=== PATIENT | female | born 1995 | race Caucasian/White ===

== ENCOUNTER 2022-10-08 19:48 | Outpatient (REF) | payer OTHER, SELFPAY | END 2022-10-08 19:49 | LOC: LAB 19:48 | PROVIDERS: PCP Obstetrics & Gynecology; Visit Provider Obstetrics & Gynecology | DX: Z34.93 Encounter for supervision of normal pregnancy, unspecified, third trimester (principal) | CPT/HCPCS: 87081 ==

== ENCOUNTER 2022-10-09 14:59 | Outpatient (OUT) | payer OTHER, SELFPAY ==
[2022-10-09 15:18] LABS: Hematocrit 34.4 % (36.0-48.0); Hemoglobin 10.7 g/dL (12.0-16.0); Mean Corpuscular HGB Conc 31.1 g/dL (29.9-35.2); Mean Corpuscular Volume 83.5 fL (81.0-99.0); Mean Platelet Volume 9.4 fL (9.5-13.5); Platelet Count 322 10^3/uL (150-450); Red Blood Count 4.12 10^6/uL (4.20-5.40); White Blood Count 15.5 10^3/uL (4.0-11.0)
[2022-10-09 15:24] LABS: Aspartate Amino Transferase 24 U/L (15-37); Estimated GFR (African America >60 (>=60); Estimated GFR (Non-African Ame >60 (>=60)
[2022-10-09 15:25] LABS: Alanine Aminotransferase 19 U/L (14-59)
[2022-10-09 15:41] LABS: Band Neutrophils Absolute 0.5 10^3/uL (0.0-0.3); Lymphocytes Absolute Manual 2.01 10^3/uL (1.20-3.80); Segmented Neut Absolute Manual 11.16 10^3/uL (1.4-6.5)
[2022-10-09 15:42] LABS: Eosinophils Absolute Manual 0.46 10^3/uL (0.00-0.70); Metamyelocytes Absolute Manual 0.31; Monocytes Absolute Manual 1.08 10^3/uL (0.30-0.80)
[2022-10-09 15:43] LABS: Anisocytosis 1+; Microcytosis 1+
[2022-10-09 16:24] LABS: Total Volume 24 Hour Urine 2500 mL/24hr
== END 2022-10-09 15:00 ==
LOC: LAB 14:59
PROVIDERS: PCP Obstetrics & Gynecology; Visit Provider Obstetrics & Gynecology
DX: O16.9 Unspecified maternal hypertension, unspecified trimester (principal)
CPT/HCPCS: 36415; 82565; 84156; 84450; 84460; 84520; 85007; 85025

== ENCOUNTER 2022-10-22 09:14 | Inpatient (IN) | payer OTHER, SELFPAY ==
[2022-10-22] VITALS (36 sets, daily range): BP systolic 95–129; BP diastolic 51–78; PULSE 81–105; RESP 16–18; TEMP 36.6–37.1
[2022-10-22 11:17] LABS: Hematocrit 31.8 % (36.0-48.0); Hemoglobin 9.9 g/dL (12.0-16.0); Mean Corpuscular HGB Conc 31.1 g/dL (29.9-35.2); Mean Corpuscular Hemoglobin 25.1 pg (26.7-34.0); Mean Corpuscular Volume 80.5 fL (81.0-99.0); Mean Platelet Volume 9.3 fL (9.5-13.5); Platelet Count 382 10^3/uL (150-450); Red Blood Count 3.95 10^6/uL (4.20-5.40); Red Cell Distribution Width 15.9 % (11.0-15.0)
[2022-10-22 11:30] LABS: Amphetamine Screen Urine NEGATIVE (NEGATIVE); Benzodiazepines Screen Urine NEGATIVE (NEGATIVE); Cannabinoid Screen Urine NEGATIVE (NEGATIVE); Cocaine Screen Urine NEGATIVE (NEGATIVE); Methamphetamines Screen Urine NEGATIVE (NEGATIVE); Opiate Screen Urine NEGATIVE (NEGATIVE); Phencyclidine Screen Urine NEGATIVE (NEGATIVE)
[2022-10-22 11:31] LABS: Barbiturates Screen Urine NEGATIVE (NEGATIVE); Buprenorphine Screen Urine NEGATIVE (NEGATIVE); Methadone Screen Urine NEGATIVE (NEGATIVE); Oxycodone Screen Urine NEGATIVE (NEGATIVE); Tricyclic Antidepressant Urine NEGATIVE (NEGATIVE)
[2022-10-22] MEDS: 0.9 % SODIUM CHLORIDE 1,000 ML 1000 ML IV (12:07)
[2022-10-22] MEDS: OXYTOCIN 10 UNIT in 0.9 % SODIUM CHLORIDE 500 ML 6.012 UNIT IV (12:10)
[2022-10-22] MEDS: FENTANYL CITRATE/PF 100 MCG/2 ML VIAL EPIDURAL (14:27)
[2022-10-22] MEDS: ROPIVACAINE HCL/PF 400 MG/200 ML PREMIX 10 MG EPIDURAL (14:28)
[2022-10-22] MEDS: LIDOCAINE HCL 2% PF 100 MG/5 ML VIAL INJ ×2 (19:32→21:20)
[2022-10-22] MEDS: 0.9 % SODIUM CHLORIDE 1,000 ML 125 ML IV (21:40)
--- NOTE | 2022-10-22 21:49 | PM.OBPRCVD ---
Procedure Induction method: per pitocin protocol Delivery augmentation: rupture of membranes and pitocin Delivery monitor: external FHT and external uterine Route of delivery: Estimated blood loss (mL): 200 Anesthesia type: Epidural Disposition: floor Delivery date: 10/22/22 Gender: male presentation: vertex Placental delivery description: Spontaneous and Normal Configuration cord description: 3 Vessels
[2022-10-22] MEDS: IBUPROFEN 600 MG TABLET PO (23:35)
--- NOTE | 2022-10-22 23:54 | PC.NURSE ---
Pt up to bathroom with nurse assist. Her gait is steady. No dizziness noted. Pt voids. Pericare is done. New pad applied. Gown changed. Bed linens changed and pt is back to bed.
--- NOTE | 2022-10-23 01:10 | PM.OBPN ---
OB - PN: Subj Subjective Patient comments: no complaints and pain well controlled Exam Constitutional Vital Signs - 24 hr 10/22/22 10:38 10/22/22 10:53 10/22/22 11:09 Temperature Pulse Rate 95 H 88 93 H Respiratory Rate Blood Pressure 112/55 L 109/56 L 107/64 Blood Pressure [Left Arm] Oxygen Delivery Method 10/22/22 11:23 10/22/22 11:38 10/22/22 11:53 Temperature Pulse Rate 95 H 95 H 89 Respiratory Rate Blood Pressure 108/67 102/61 98/58 L Blood Pressure [Left Arm] Oxygen Delivery Method 10/22/22 12:00 10/22/22 12:15 10/22/22 12:31 Temperature 98.1 F Pulse Rate 86 90 Respiratory Rate Blood Pressure 100/60 97/55 L Blood Pressure [Left Arm] Oxygen Delivery Method 10/22/22 13:01 10/22/22 13:31 10/22/22 14:17 Temperature Pulse Rate 99 H 103 H 105 H Respiratory Rate Blood Pressure 104/62 116/55 L 124/78 H Blood Pressure [Left Arm] Oxygen Delivery Method 10/22/22 14:24 10/22/22 14:25 10/22/22 14:35 Temperature 97.9 F Pulse Rate 87 92 H Respiratory Rate Blood Pressure 116/76 125/64 H Blood Pressure [Left Arm] Oxygen Delivery Method 10/22/22 14:40 10/22/22 14:44 10/22/22 14:49 Temperature Pulse Rate 93 H 90 91 H Respiratory Rate Blood Pressure 120/60 H 126/68 H 115/70 Blood Pressure [Left Arm] Oxygen Delivery Method 10/22/22 14:54 10/22/22 15:32 10/22/22 16:01 Temperature Pulse Rate 91 H 93 H 86 Respiratory Rate Blood Pressure 119/67 95/54 L 99/51 L Blood Pressure [Left Arm] Oxygen Delivery Method 10/22/22 16:30 10/22/22 17:00 10/22/22 17:30 Temperature Pulse Rate 90 81 85 Respiratory Rate Blood Pressure 105/57 L 100/55 L 108/69 Blood Pressure [Left Arm] Oxygen Delivery Method 10/22/22 18:00 10/22/22 18:30 10/22/22 18:59 Temperature Pulse Rate 89 87 93 H Respiratory Rate Blood Pressure 125/78 H 129/68 H 120/64 H Blood Pressure [Left Arm] Oxygen Delivery Method 10/22/22 20:45 10/22/22 21:29 10/22/22 21:44 Temperature Pulse Rate 101 H 105 H 93 H Respiratory Rate Blood Pressure 119/62 127/66 H 108/57 L Blood Pressure [Left Arm] Oxygen Delivery Method 10/22/22 21:59 10/22/22 21:59 10/22/22 22:14 Temperature 98.7 F Pulse Rate 101 H 99 H Respiratory Rate 18 Blood Pressure 115/57 L 111/57 L Blood Pressure [Left Arm] Oxygen Delivery Method 10/22/22 22:29 10/22/22 22:44 10/22/22 22:59 Temperature Pulse Rate 93 H 90 96 H Respiratory Rate Blood Pressure 101/61 108/61 108/61 Blood Pressure [Left Arm] Oxygen Delivery Method 10/22/22 23:22 10/22/22 23:22 Temperature 98.5 F Pulse Rate 95 H 95 H Respiratory Rate 16 Blood Pressure 112/66 Blood Pressure [Left Arm] 112/66 Oxygen Delivery Method Room Air Documenting provider has reviewed patient's vital signs: yes Common normals: no apparent distress Respiratory Common normals: normal respiratory effort and clear to auscultation bilaterally Cardio Common normals: regular rate and regular rhythm GI Common normals: Normal to inspection, nondistended, normoactive bowel sounds present Extremity Common normals: no clubbing, cyanosis or edema and no calf tenderness Results Labs Labs: Short CBC 10/22/22 Range/Units 10:45 WBC 12.0 H (4.0-11.0) 10^3/uL Hgb 9.9 L (12.0-16.0) g/dL Hct 31.8 L (36.0-48.0) % Plt Count 382 (150-450) 10^3/uL OB - PN: A/P Plan - Vaginal Delivery day: 1 Plan: routine care Time Spent with Patient Time: Total time spent is greater than 50% in coordination of care (as documented) at patient's floor/unit and/or counseling patient: Total time spent with greater than 50% in coordination of care (as documented) at patient's floor/unit and/or counseling patient: less than 15 minutes
[2022-10-23 05:22] LABS: Basophils Absolute Auto 0.1 10^3/uL (0.0-0.1); Basophils Percent Auto 0.3 % (0.2-2.0); Hematocrit 33.4 % (36.0-48.0); Hemoglobin 10.6 g/dL (12.0-16.0); Immature Granulocytes Abs Auto 0.28 10^3/uL (0.00-0.03); Immature Granulocytes Pct Auto 1.3 % (0.0-0.5); Lymphocytes Absolute Auto 1.6 10^3/uL (1.2-3.8); Lymphocytes Percent Auto 7.6 % (20.5-60.0); Mean Corpuscular HGB Conc 31.7 g/dL (29.9-35.2); Mean Corpuscular Hemoglobin 25.8 pg (26.7-34.0); Mean Corpuscular Volume 81.3 fL (81.0-99.0); Mean Platelet Volume 9.2 fL (9.5-13.5); Monocytes Absolute Auto 1.7 10^3/uL (0.3-0.8); Monocytes Percent Auto 8.1 % (1.7-12.0); Neutrophils Absolute Auto 17.5 10^3/uL (1.4-6.5); Neutrophils Percent Auto 82.7 % (43.0-75.0); Platelet Count 376 10^3/uL (150-450); Red Blood Count 4.11 10^6/uL (4.20-5.40); Red Cell Distribution Width 16.1 % (11.0-15.0); White Blood Count 21.2 10^3/uL (4.0-11.0)
--- NOTE | 2022-10-23 07:41 | W.PC.ACHO ---
Registration Status: ADM IN Primary Language: Preferred Language: Telugu Active Medications Generic Name Dose Route Start Last Admin Trade Name Freq PRN Reason Stop Dose Admin Acetaminophen 650 mg 10/22/22 21:46 Acetaminophen 325 Mg Tablet PO Q6H PRN Mild Pain Al Hydroxide/Mg Hydroxide 2,400 mg 10/22/22 21:46 Magnesium Hydroxide 2,400 Mg/10 Ml Oral.Susp PO Q6H PRN Dyspepsia Benzocaine/Menthol 1 applic 10/22/22 21:46 10/22/22 23:34 Benzocaine/Menthol 85 Gram Bottle TOPICAL 1 applic DIRECTED PRN Administration Pain Carboprost Tromethamine 250 mcg 10/22/22 10:53 Carboprost Tromethamine 250 Mcg/Ml 1 Ml Vial IM Q15M PRN Bleeding Diphenhydramine HCl 25 mg 10/22/22 13:26 Diphenhydramine Hcl 50 Mg/Ml (1ml) Vial IV Q6H PRN Itching Diphtheria/Pertussis/Tetanus Vacc 0.5 ml 10/23/22 11:00 Adacel Diph,Pertuss(Acell),Tet Vac/Pf 0.5 Ml Adult Syringe IM 10/23/22 11:01 .ONCE ONE Docusate Sodium 100 mg 10/23/22 09:00 Docusate Sodium 100 Mg Capsule PO BID RAYMUNDO Ephedrine Sulfate 5 mg 10/22/22 13:26 Ephedrine Sulfate 50 Mg/Ml Vial IV Q5M PRN Blood Pressure - Low Fentanyl Citrate 100 mcg 10/22/22 13:26 10/22/22 14:27 Fentanyl Citrate/Pf 100 Mcg/2 Ml Vial EPIDURAL 100 mcg Q4H PRN Administration Pain Sodium Chloride 1,000 mls @ 125 mls/hr 10/22/22 11:00 10/22/22 14:27 Sodium Chloride 0.9% 1,000 Ml IV 125 mls/hr .Q8H RAYMUNDO Administration Oxytocin 10 unit/ Sodium 501 mls @ 6.012 mls/hr 10/22/22 11:00 Chloride IV Q24H RAYMUNDO 2 MILLIUNIT/MIN Oxytocin 10 unit/ Sodium 501 mls @ 6.012 mls/hr 10/22/22 11:44 10/22/22 12:10 Chloride IV 10/25/22 23:03 2 milliunit/min ONCE ONE 6.012 mls/hr Administration 2 MILLIUNIT/MIN Ropivacaine/Sodium Chloride 400 mg in 200 mls @ 6 mls/hr 10/22/22 13:30 10/22/22 14:28 Naropin 0.2% 400 Mg/200 Ml Bag EPIDURAL 10 mls/hr Q24H RAYMUNDO 10 mls/hr Administration Oxytocin 20 unit/ Sodium 1,002 mls @ 125 mls/hr 10/23/22 06:45 10/22/22 21:43 Chloride IV 10/23/22 14:44 125 mls/hr Q8H RAYMUNDO 125 mls/hr Administration Protocol Ibuprofen 600 mg 10/22/22 21:46 10/22/22 23:35 Ibuprofen 600 Mg Tablet PO 600 mg Q6H PRN Administration Moderate Pain Lidocaine 5 ml 10/22/22 10:53 Lidocaine Viscous 2% 15 Ml Topical Solution TOPICAL Q5M PRN Pain Lidocaine 1 ml 10/22/22 10:53 Lidocaine Hcl 1% 200 Mg/20 Ml Mdv INJ Q5M PRN Pain Measles/Mumps/Rubella Vaccine Live 0.5 ml 10/23/22 11:00 Measles,Mumps,Rubella Vacc/Pf 0.5 Ml Vial SQ 10/23/22 11:01 .ONCE ONE Methylergonovine Maleate 0.2 mg 10/22/22 10:53 Methylergonovine Maleate 0.2 Mg Tablet PO Q4H PRN Uterine Contractility/Contract Misoprostol 600 mcg 10/22/22 10:53 Misoprostol 100 Mcg Tablet PO ONCE PRN Uterine Bleeding Misoprostol 800 mcg 10/22/22 10:53 Misoprostol 100 Mcg Tablet SL ONCE PRN Uterine Bleeding Nalbuphine HCl 10 mg 10/22/22 10:53 Nalbuphine Hcl 10 Mg/Ml Ampule IV Q3H PRN Pain Ondansetron HCl 4 mg 10/22/22 10:53 Ondansetron Pf 4 Mg/2 Ml Vial IV Q6H PRN Nausea And Vomiting Ondansetron HCl 4 mg 10/22/22 10:53 Ondansetron 4 Mg Rapdis Tablet SL Q6H PRN Nausea And Vomiting Oxytocin 10 unit 10/22/22 10:53 Oxytocin 100 Unit/10 Ml Vial IM ONCE PRN Uterine Bleeding Senna 17.2 mg 10/22/22 20:00 Sennosides 8.6 Mg Tablet PO QHS PRN Constipation Simethicone 80 mg 10/22/22 21:46 Simethicone 80 Mg Tab.Chew PO QID PRN Abdominal Distention Temazepam 15 mg 10/22/22 20:00 Temazepam 15 Mg Capsule PO BEDTIME PRN Sleep Witch Christine/Glycerin 1 each 10/22/22 21:46 Glycerin/Witch Christine 1 Each Jar TOPICAL DIRECTED PRN Pain Diet Category Date Time Status Regular Consistency Diet Diet 10/23/22 Breakfast Active IV Insertion/Site Date of IV Line Insertion [18g 10/22/22 left Hand] IV Insertion Time [18g left 21:10 Hand] Neurology [place] coma scale total score 15 Respiratory Lung sounds [Throughout] clear Oxygen Delivery Method Room Air
--- NOTE | 2022-10-23 08:44 | PC.NURSE ---
0745plan of care reviewed of self and . Pt pleasant, denies pain or needs at this time
--- NOTE | 2022-10-23 09:02 | PC.NURSE ---
0900-IV d/c'd, bandaid to site. Pt requests to shower. denies pain or other needs
--- NOTE | 2022-10-23 09:51 | PC.NURSE ---
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 denies needs
[2022-10-23] MEDS: DOCUSATE SODIUM 100 MG CAPSULE PO ×2 (11:17→23:51)
[2022-10-23 12:03] VITALS: BP 111/55; PULSE 93
[2022-10-23] MEDS: IBUPROFEN 600 MG TABLET PO ×2 (14:38→23:51)
[2022-10-23 17:08] VITALS: BP 95/53; PULSE 83
--- NOTE | 2022-10-23 21:02 | PC.NURSE ---
1909-report to Karen RN,. care relinquished.
--- NOTE | 2022-10-23 21:09 | PC.NURSE ---
visitors in, denies pain or needs
[2022-10-23 23:43] VITALS: BP 104/63; PULSE 74
[2022-10-23 23:45] VITALS: BP 104/63; PULSE 74; RESP 16; TEMP 36.4
--- NOTE | 2022-10-24 07:17 | W.PC.ACHO ---
Registration Status: ADM IN Primary Language: Preferred Language: Greek Active Medications Generic Name Dose Route Start Last Admin Trade Name Freq PRN Reason Stop Dose Admin Acetaminophen 650 mg 10/22/22 21:46 Acetaminophen 325 Mg Tablet PO Q6H PRN Mild Pain Al Hydroxide/Mg Hydroxide 2,400 mg 10/22/22 21:46 Magnesium Hydroxide 2,400 Mg/10 Ml Oral.Susp PO Q6H PRN Dyspepsia Benzocaine/Menthol 1 applic 10/22/22 21:46 10/22/22 23:34 Benzocaine/Menthol 85 Gram Bottle TOPICAL 1 applic DIRECTED PRN Administration Pain Carboprost Tromethamine 250 mcg 10/22/22 10:53 Carboprost Tromethamine 250 Mcg/Ml 1 Ml Vial IM Q15M PRN Bleeding Diphenhydramine HCl 25 mg 10/22/22 13:26 Diphenhydramine Hcl 50 Mg/Ml (1ml) Vial IV Q6H PRN Itching Docusate Sodium 100 mg 10/23/22 09:00 10/23/22 23:51 Docusate Sodium 100 Mg Capsule PO 100 mg BID RYAMUNDO Administration Ephedrine Sulfate 5 mg 10/22/22 13:26 Ephedrine Sulfate 50 Mg/Ml Vial IV Q5M PRN Blood Pressure - Low Fentanyl Citrate 100 mcg 10/22/22 13:26 10/22/22 14:27 Fentanyl Citrate/Pf 100 Mcg/2 Ml Vial EPIDURAL 100 mcg Q4H PRN Administration Pain Sodium Chloride 1,000 mls @ 125 mls/hr 10/22/22 11:00 10/22/22 21:40 Sodium Chloride 0.9% 1,000 Ml IV 125 mls/hr .Q8H RAYMUNDO Administration Oxytocin 10 unit/ Sodium 501 mls @ 6.012 mls/hr 10/22/22 11:00 Chloride IV Q24H RAYMUNDO 2 MILLIUNIT/MIN Oxytocin 10 unit/ Sodium 501 mls @ 6.012 mls/hr 10/22/22 11:44 10/22/22 12:10 Chloride IV 10/25/22 23:03 2 milliunit/min ONCE ONE 6.012 mls/hr Administration 2 MILLIUNIT/MIN Ropivacaine/Sodium Chloride 400 mg in 200 mls @ 6 mls/hr 10/22/22 13:30 10/22/22 14:28 Naropin 0.2% 400 Mg/200 Ml Bag EPIDURAL 10 mls/hr Q24H RAYMUNDO 10 mls/hr Administration Ibuprofen 600 mg 10/22/22 21:46 10/23/22 23:51 Ibuprofen 600 Mg Tablet PO 600 mg Q6H PRN Administration Moderate Pain Lidocaine 5 ml 10/22/22 10:53 Lidocaine Viscous 2% 15 Ml Topical Solution TOPICAL Q5M PRN Pain Lidocaine 1 ml 10/22/22 10:53 Lidocaine Hcl 1% 200 Mg/20 Ml Mdv INJ Q5M PRN Pain Methylergonovine Maleate 0.2 mg 10/22/22 10:53 Methylergonovine Maleate 0.2 Mg Tablet PO Q4H PRN Uterine Contractility/Contract Misoprostol 600 mcg 10/22/22 10:53 Misoprostol 100 Mcg Tablet PO ONCE PRN Uterine Bleeding Misoprostol 800 mcg 10/22/22 10:53 Misoprostol 100 Mcg Tablet SL ONCE PRN Uterine Bleeding Nalbuphine HCl 10 mg 10/22/22 10:53 Nalbuphine Hcl 10 Mg/Ml Ampule IV Q3H PRN Pain Ondansetron HCl 4 mg 10/22/22 10:53 Ondansetron Pf 4 Mg/2 Ml Vial IV Q6H PRN Nausea And Vomiting Ondansetron HCl 4 mg 10/22/22 10:53 Ondansetron 4 Mg Rapdis Tablet SL Q6H PRN Nausea And Vomiting Oxytocin 10 unit 10/22/22 10:53 Oxytocin 100 Unit/10 Ml Vial IM ONCE PRN Uterine Bleeding Senna 17.2 mg 10/22/22 20:00 Sennosides 8.6 Mg Tablet PO QHS PRN Constipation Simethicone 80 mg 10/22/22 21:46 Simethicone 80 Mg Tab.Chew PO QID PRN Abdominal Distention Temazepam 15 mg 10/22/22 20:00 Temazepam 15 Mg Capsule PO BEDTIME PRN Sleep Witch Christine/Glycerin 1 each 10/22/22 21:46 Glycerin/Witch Christine 1 Each Jar TOPICAL DIRECTED PRN Pain Diet Category Date Time Status Regular Consistency Diet Diet 10/23/22 Breakfast Active Neurology [place] coma scale total score 15 Respiratory Lung sounds [Throughout] clear Oxygen Delivery Method Room Air Oxygen Delivery Method Room Air Cardiology Heart Sounds Regular Bowels Bowel Pattern No Bowel Movement Renal Bladder Pattern Continent
[2022-10-24 08:09] VITALS: BP 110/64; PULSE 78
[2022-10-24 08:10] VITALS: PULSE 78; RESP 16; TEMP 37
[2022-10-24] MEDS: DOCUSATE SODIUM 100 MG CAPSULE PO (08:19)
--- NOTE | 2022-10-24 09:02 | PM.OBPN ---
OB - PN: Subj Subjective Patient comments: no complaints and pain well controlled [place] status: doing well Exam Constitutional Vital Signs - 24 hr 10/23/22 12:03 10/23/22 17:08 10/23/22 23:43 Temperature Pulse Rate 93 H 83 74 Pulse Rate [Monitor] Respiratory Rate Blood Pressure 111/55 L 95/53 L 104/63 Blood Pressure [Left Arm] Oxygen Delivery Method 10/24/22 08:09 10/23/22 23:45 10/23/22 23:45 Temperature 97.5 F L Pulse Rate 78 74 Pulse Rate [Monitor] 74 Respiratory Rate 16 16 Blood Pressure 110/64 Blood Pressure [Left Arm] 104/63 Oxygen Delivery Method Room Air Room Air Common normals: no apparent distress Respiratory Common normals: normal respiratory effort and clear to auscultation bilaterally Cardio Common normals: regular rate and regular rhythm GI Common normals: Normal to inspection, nondistended, normoactive bowel sounds present Extremity Common normals: no clubbing, cyanosis or edema and no calf tenderness OB - PN: A/P Plan - Vaginal Delivery day: 2 Plan: routine care, discharge home and follow up 6 weeks Time Spent with Patient Time: Total time spent is greater than 50% in coordination of care (as documented) at patient's floor/unit and/or counseling patient: Total time spent with greater than 50% in coordination of care (as documented) at patient's floor/unit and/or counseling patient: less than 15 minutes
== END 2022-10-24 11:15 | disposition home or self-care (01) | DRG 560 ==
PROVIDERS: Admitting Provider Obstetrics & Gynecology; PCP Obstetrics & Gynecology; Visit Provider Obstetrics & Gynecology
DX: O80 Encounter for full-term uncomplicated delivery (principal); Z3A.38 38 weeks gestation of pregnancy; Z79.899 Other long term (current) drug therapy; Z98.890 Other specified postprocedural states; Z90.49 Acquired absence of other specified parts of digestive tract; Z87.42 Personal history of other diseases of the female genital tract; Z88.2 Allergy status to sulfonamides; Z37.0 Single live birth
CPT/HCPCS: 36415; 80307; 85025; 85027; 86850; 86900; 86901; 96374; 96376

== ENCOUNTER 2022-12-24 12:25 | Outpatient (OUT) | payer OTHER, SELFPAY | END 2022-12-24 12:26 | disposition home or self-care (01) | PROVIDERS: PCP Obstetrics & Gynecology; Visit Provider Obstetrics & Gynecology | DX: Z01.818 Encounter for other preprocedural examination (principal); Z30.2 Encounter for sterilization ==

== ENCOUNTER 2022-12-31 06:12 | Day surgery (SDC) | payer OTHER, SELFPAY ==
[2022-12-24 12:51] VITALS: BP 118/66; PULSE 93; RESP 14; TEMP 36.4; O2SAT 98; BMI 29.0
[2022-12-31] VITALS (11 sets, daily range): BP systolic 96–114; BP diastolic 61–79; PULSE 64–94; RESP 14–28; TEMP 36.6–36.7; O2SAT 93–98; BMI 28.8
[2022-12-31 06:23] LABS: Basophils Percent Auto 0.6 % (0.2-2.0); Eosinophils Absolute Auto 0.4 10^3/uL (0.0-0.7); Eosinophils Percent Auto 5.6 % (0.9-7.0); Hematocrit 40.4 % (36.0-48.0); Hemoglobin 13.1 g/dL (12.0-16.0); Immature Granulocytes Abs Auto 0.05 10^3/uL (0.00-0.03); Immature Granulocytes Pct Auto 0.7 % (0.0-0.5); Lymphocytes Absolute Auto 2.4 10^3/uL (1.2-3.8); Lymphocytes Percent Auto 33.6 % (20.5-60.0); Mean Corpuscular HGB Conc 32.4 g/dL (29.9-35.2); Mean Corpuscular Volume 86.3 fL (81.0-99.0); Mean Platelet Volume 8.5 fL (9.5-13.5); Monocytes Absolute Auto 0.7 10^3/uL (0.3-0.8); Monocytes Percent Auto 9.6 % (1.7-12.0); Neutrophils Absolute Auto 3.5 10^3/uL (1.4-6.5); Neutrophils Percent Auto 49.9 % (43.0-75.0); Platelet Count 318 10^3/uL (150-450); Red Blood Count 4.68 10^6/uL (4.20-5.40); Red Cell Distribution Width 19.4 % (11.0-15.0); White Blood Count 7.1 10^3/uL (4.0-11.0)
[2022-12-31 06:43] LABS: HCG Quantitative <1 mIU/mL
[2022-12-31] MEDS: LACTATED RINGER'S SOLUTION 1,000 ML 50 ML IV (06:51)
[2022-12-31] MEDS: SCOPOLAMINE 1 EACH PATCH.TD.3 1 PATCH TD (07:33)
--- NOTE | 2022-12-31 08:53 | P.ON_ITS ---
Brief Operative Note Date of procedure: 12/31/22 Pre-op diagnosis: desires permanent sterilization, multiparity Post-op diagnosis: same as pre-op Procedure: NAME OF PROCEDURE: bilateral laparoscopic salpingectomy PROCEDURE: The patient was taken back to the Operating Room where she was given general anesthesia without difficulty. She was then prepped and draped in the normal sterile fashion after being placed in a dorsal lithotomy position. A wet sponge stick was placed into the patient's vagina. Attention was then turned to the patient's abdomen, where a scalpel was used to make a small infraumbilical incision. The S retractors were then used to dissect the underlying layers until the fascia could be seen. The fascia was then grasped with Neyda clamps and tented up. A knife was then used to make a small incision to the fascia. The muscle was identified, at that time two sutures of #0 Vicryl on a GI needle was then used and placed through the fascia. the peritoneum was then identified and entered bluntly. The 10-4 Sana was then placed into the patient's abdomen. This was confirmed with direct visualization of the bowel, using the laparoscope. The patient's abdomen was then insufflated using approximately 4 liters of CO2 gas. Survey of the patient's abdomen demonstrated ovaries were normal in appearance as well as both tubes and uterus. A second and third rt and lt lateral robotic ports which were 8 mm in size, was then placed after the skin incision was made under direct visualization . The robotic arms were engaged. The patient's tube on the patient's right side was identified and tented up using a grasper, the vessel sealer apparatus was then used to come across the mesosalpingx from the fimbriated end to the insertion site at the uterus, the tube was then amputated and removed in its entirety. This was done on the contralateral side. The tubes were the removed from the patients abdomen. Excellent hemostasis was noted. The lateral ports were then moved under direct visualization with excellent hemostasis. All instruments were removed from the patient's abdomen. The fascia was closed using the #0 Vicryl on GI needle. The skin was closed using 4-0 Vicryl subcuticularly. All instruments were removed from the patient's vagina as well. The patient was taken out of the dorsal lithotomy position and placed in the supine position and taken to recovery in stable condition. Sponge, lap and needle counts were correct x2. Anesthesia: BIANCAA Surgeon: Siddharth Santos [place] Department Supervisor: Latisha Hurtado Estimated blood loss (mL): 5 Pathology: none sent Condition: stable Disposition: PACU
--- NOTE | 2022-12-31 09:54 | PC.NURSE ---
Patient urinated without difficulty
== END 2022-12-31 10:05 | disposition home or self-care (01) ==
PROVIDERS: PCP Obstetrics & Gynecology; Visit Provider Obstetrics & Gynecology
PROC: (CPT 840; principal; 2022-12-31 07:30)
DX: Z30.2 Encounter for sterilization (principal); N80.9 Endometriosis, unspecified; Z90.49 Acquired absence of other specified parts of digestive tract
CPT/HCPCS: 58661; 36415; 84702; 85025; 88302; J2704

== ENCOUNTER 2024-07-08 22:48 | Emergency (ER) | payer OTHER, SELFPAY ==
[2024-07-08 22:52] VITALS: BP 101/78; PULSE 82; TEMP 36.9; O2SAT 100; BMI 27.5
--- NOTE | 2024-07-08 22:58 | PC.NURSE ---
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 PT WAS DRAWING BLOOD ON PT AND ACCIDENTLY STUCK HER LEFT POSTERIOR HAND WITH NEEDLE THAT WAS USED ON PT. BLEEDING CONTROLLED
--- NOTE | 2024-07-08 23:31 | ED.GENADUL1 ---
HPI HPI - General Adult General Chief complaint: Skin/Abscess/Foreign Body Stated complaint: NEEDLE STICK Time Seen by Provider: 07/08/24 22:53 Source: patient Mode of arrival: walk-in Limitations: no limitations History of Present Illness HPI narrative: 28-year-old female to the emergency department with chief complaint of needlestick. 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 She reports that she was performing a blood draw with a small bore butterfly needle when she stuck herself in the left thenar eminence after withdrawing the needle from the patient. She reports that she took the glove off and there was some blood from her inside of the glove. The source patient is not known to have HIV or hepatitis C. My patient reports she is fully vaccinated including the hepatitis B series. Tetanus up-to-date. Denies . The area was thoroughly washed and cleansed. Related Data Allergies Allergy/AdvReac Type Severity Reaction Status Date / Time Sulfa (Sulfonamide Allergy Mild Hives Verified 07/08/24 22:56 Antibiotics) Opioid HPI Opioid Management Most Recent Opioid Data: Last Pain Scale 4 12/31/22 10:05 12/31/22 Ur Phencyclidine Scrn Negative (NEGATIVE) 10/22/22 10:45 10/22/22 Review of Systems ROS Status of ROS 10 or more systems reviewed and unremarkable except as noted in history and below [facility] Medical History (Updated 07/08/24 @ 23:41 by Guero Daniel MD) MRSA (methicillin resistant Staphylococcus aureus) ?A49.02 - Methicillin resistant Staphylococcus aureus infection, unspecified site (ICD-10) Anemia ?D64.9 - Anemia, unspecified (ICD-10) COVID-19 ?U07.1 - COVID-19 (ICD-10) Neurocardiogenic syncope ?R55 - Syncope and collapse (ICD-10) Postoperative nausea and vomiting ?R11.2 - Nausea with vomiting, unspecified (ICD-10) ?Z98.890 - Other specified postprocedural states (ICD-10) Request for sterilization ?Z30.2 - Encounter for sterilization (ICD-10) Endometriosis ?N80.9 - Endometriosis, unspecified (ICD-10) Surgical History (Updated 12/24/22 @ 12:46 by Skylar Cuellar NP) History of laparoscopy ?Z98.890 - Other specified postprocedural states (ICD-10) History of cholecystectomy ?Z90.49 - Acquired absence of other specified parts of digestive tract (ICD-10) History of appendectomy ?Z90.49 - Acquired absence of other specified parts of digestive tract (ICD-10) History of tonsillectomy and adenoidectomy ?Z90.89 - Acquired absence of other organs (ICD-10) Family History (Updated 12/24/22 @ 12:46 by Skylar Cuellar NP) Other Family history of diabetes mellitus Family history of hypertension Social History (Updated 12/24/22 @ 12:41 by Skylar Cuellar NP) Within the past year, how often did you have a drink containing alcohol: monthly or less Smoking status: Never smoker Non-prescribed substance use: denies use 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 GENERAL: Well developed, well appearing adult in no acute distress. NEURO: Alert and oriented. Moves all extremities. Face is symmetric and expressive. EYES: PERRL. No scleral icterus or conjunctival injection. No discharge. HENT: Normocephalic, atraumatic. Hearing is grossly intact. Nares grossly patent and without discharge. Mucous membranes moist. NECK: No JVD. Patient moves neck without restriction. Left Hand: Small skin break in the thenar eminence without bleeding. SKIN: Warm and dry. Normal turgor. No rash or lesions appreciated. PSYCH: Mood, affect, and interaction is appropriate to the setting. Constitutional Vital Signs, click to edit/add: Last Vital Signs Temp 98.4 F 07/08/24 22:52 Pulse 82 07/08/24 22:52 Resp 16 07/08/24 22:52 BP 101/78 07/08/24 22:52 Pulse Ox 100 07/08/24 22:52 O2 Del Method Room Air 07/08/24 22:52 Course Vital Signs Vital signs: Vital Signs Temperature 98.4 F 07/08/24 22:52 Pulse Rate 82 07/08/24 22:52 Respiratory Rate 16 07/08/24 22:52 Blood Pressure 101/78 07/08/24 22:52 Pulse Oximetry 100 07/08/24 22:52 Oxygen Delivery Method Room Air 07/08/24 22:52 Temperature 98.4 F 07/08/24 22:52 Pulse Rate 82 07/08/24 22:52 Respiratory Rate 16 07/08/24 22:52 Blood Pressure 101/78 07/08/24 22:52 Pulse Oximetry 100 07/08/24 22:52 Oxygen Delivery Method Room Air 07/08/24 22:52 Medical Decision Making MDM Narrative Medical decision making narrative: 28-year-old female to the emergency department with chief complaint of needlestick. Vital stable, the patient is afebrile. Tetanus up-to-date. Wound cleansed prior to arrival. 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 Lab protocol ordered for HIV/HEPC/HEPB. Risk profile Hepatitis B, patient has had full series, risk is low Hepatitis C, source patient unknown HIV, source patient unknown but low risk, small bore, deep transQ, fresh blood. RASP Score: low risk <0.001% PEP not recommended. Discussed recommendations with the patient. She agrees with plan. Discussed HIV risk and RASP tool recommendation, agrees with plan for no PEP. Occupational health referral. Return precautions were discussed. All questions were answered. The patient was discharged home. Medical Records Medical records reviewed: Yes I reviewed the patient's medical records Discharge Plan Discharge Chief Complaint: Skin/Abscess/Foreign Body Clinical Impression: Needle stick injury of hand, Employee exposure to blood Patient Disposition: Home, Self-Care Time of Disposition Decision: 23:38 Condition: Good Mode of Transportation: Private Vehicle Print Language: [place] Additional Instructions: Follow-up for results of testing to determine if further care was needed. Referrals: Physician,Non-Staff, MD [Primary Care Provider] - 1 week
[2024-07-10 11:08] LABS: HCV Antibody Non Reactive (Non Reactive); HIV Ab/p24 Ag Screen Non Reactive (Non Reactive); Hepatitis B Surf Ab Quant 39.2 mIU/mL (Immunity>10)
[2024-07-11 15:08] LABS: Rapid Plasma Reagin, Quant Non Reactive titer (NonRea<1:1)
== END 2024-07-08 23:45 | disposition home or self-care (01) ==
PROVIDERS: Emergency Provider Student in an Organized Health Care Education/Training Program
DX: S61.032A Puncture wound without foreign body of left thumb without damage to nail, initial encounter (principal); W46.0XXA Contact with hypodermic needle, initial encounter; Z77.21 Contact with and (suspected) exposure to potentially hazardous body fluids
CPT/HCPCS: 36415; 86317; 86592; 86803; 87389; 99283